=== PATIENT | male | born 1935 | race Caucasian/White ===

== ENCOUNTER 2016-08-07 11:42 | Inpatient (IN) | payer MEDICARE, BC ==
--- NOTE | ~2016-08-07 | DS ---
Unit #: [id number] #: [id number] Patient: CONNIE ISBELL [id number] [address] [place], [place] [address] [id number] I MR#: [id number] NAME: CONNIE ISBELL. ROOM: 469 Age: 80 Sex: M Admission Date: 08/07/2016 : 1935 Discharge Date: 08/08/2016 Attending Physician: Debra Siegel M.D. Primary Care Physician: Jenaro Ortega D.O. DISCHARGE SUMMARY PRINCIPAL DIAGNOSES 1. Gram negative rosa maria catheter associated urinary tract infection with pending urine culture. 2. Mild diverticulitis. 3. Mild non anion gap metabolic acidosis. 4. Severe benign prostatic hypertrophy with chronic indwelling Reaves catheter. 5. Recent right total knee arthroplasty. 6. Dementia, moderate. 7. Hypertension. 8. Gastroesophageal reflux disease. 9. Osteoarthritis. 10. Infrarenal abdominal aortic aneurysm. CONSULTANTS Dr. Jackson, urology. DIAGNOSTIC DATA IMAGING: CT scan of the abdomen and pelvis on 08/07/2016 with mild pericolonic stranding along the mid sigmoid colon, consistent with mild diverticulitis. No evidence of abscess of fluid collection. Diffuse urinary bladder wall thickening. Bladder is decompressed by Reaves catheter. Severe prostatic enlargement. A 3.5 cm infrarenal abdominal aortic aneurysm. CLINICAL HISTORY/HOSPITAL COURSE Mr. Isbell is an 80-year-old male who presented to the emergency department with complaints of abdominal pain. Please refer to history and physical for further details. CT scan in the emergency department revealed mild diverticulitis and significant cystitis. Urinalysis was also consistent with urinary tract infection. The patient was afebrile and did not have any evidence of leukocytosis. He was placed in the hospital for further evaluation. This morning the patient still remains afebrile and white blood cell count is normal. He states his abdominal pain is better. His Reaves catheter was changed in the emergency department after a dose of antibiotics. He is stating simply he would like food. I am going to see how he tolerates a diet and await physical therapy evaluation. Assuming the patient does well with physical therapy, given lack of fever or leukocytosis, I think he can be discharged home and I will follow up urine culture as an outpatient. DISCHARGE CONDITION Unit #: [id number] #: [id number] Patient: CONNIE ISBELL Stable. DISPOSITION Discharge to home. DISCHARGE MEDICATIONS 1. Megace 400 mg b.i.d. 2. Glucosamine 500 mg daily. 3. Norvasc 5 mg daily. 4. Colace 100 mg daily. 5. Donepezil 10 mg at bedtime. 6. Patanol 1 drop both eyes b.i.d. 7. Finasteride 5 mg daily. 8. Aspirin 325 mg daily. 9. Omeprazole 40 mg b.i.d. 10. Vitamin B complex plus D 1 tablet daily. 11. Levaquin 500 mg daily for 9 days. 12. Flagyl 500 mg p.o. t.i.d. for 9 days. DIET The patient is instructed to follow a heart healthy diet. ACTIVITY Increase as tolerated under the care of physical therapy and occupational therapy. FOLLOWUP 1. The patient will follow up with his orthopedic surgeon as previously scheduled. 2. He can follow up with Dr. Jenaro Ortega in two weeks. Dictated by... Debra Siegel M.D. YUE/vidya TD: 08/08/2016 12:12 JOB #: [id number] DISCHARGE SUMMARY Page 1 of 1 X Debra Siegel MD X DISCHARGE SUMMARY
--- NOTE | ~2016-08-07 | A ---
[facility] Nutrition Therapy DATE: 08/08/16 Patient: CONNIE PATIÑO Physician: TATIANA Address: [address] Room/Bed: [address] [place] [address], Zip: [place] [address] Admit Date: 08/07/16 Date of : 35 Height: 5 10 Weight: 174 79.09 NUTRITIONAL ASSESSMENT: REASON: 5 pts RE: 27# wt loss. eating poorly 80 yo male admitted for acute diverticulitis, abdominal pain, UTI PMH: Anemia, HTN, GERD, osteoathritis, dementia Anthropometrics: Ht: Wt: 79.1 kg (174#) BMI: Labs: WNL Meds: Levaquin, Protonix, Megace, Zofran, NaCl I/O & Bowel function: 2235/1800, last BM 08/06 Skin Integrity: Scar (R knee), bruise (BUE), no edema noted Assessment: Chart reviewed, events noted. Dx: Intervention: Monitoring, Evaluation and Goals: Recommendations: Pt is at a ___ nutritional risk. RD will f/u per protocol. Respectfully, Tiffani Watkins, [employer] [facility] cc: client file
--- NOTE | ~2016-08-07 | CT2 ---
[facility] A Service of [facility] & [facility] RADIOLOGY TEXT RESULTS PATIENT: CONNIE PATIÑO LOCATION: [facility] 469-01 : 35 UNIT #: [id number] AGE: [address]: Debra Siegel MD SEX: M ORDER DR: [id number] [facility] [address] [place], [place] [address] [id number] I MR#: [id number] Acc #: [id number] NAME: CONNIE PATIÑO. : 1935 SEX: M STUDY DATE/TIME: 08/07/2016 13:20 UNIT: [facility] ROOM: [facility] STUDY DESCRIPTION: CT Abd and Pelv W Cont Attending Physician: Tressa Rogers M.D. Ordering Physician: Jey Vila M.D. Primary Care Physician: Jenaro Ortega D.O. MEDICAL IMAGING REPORT This report is preliminary unless electronic signature is present EXAM CT abdomen and pelvis with IV contrast HISTORY Dysuria for 2 months. Nausea and diarrhea for [address] exam was performed with one or more of the following radiation dose reduction techniques: automatic exposure control, adjustment of mA and/or kV according to patient size, and iterative reconstruction. FINDINGS CT abdomen and pelvis was performed with IV contrast. CT ABDOMEN: The liver, gallbladder, spleen, adrenal glands and kidneys are normal. There is a 3.5 cm infrarenal abdominal aortic aneurysm, slightly larger than on 12/01/2014 when it measured 3.2 cm in similar AP dimension. Tortuous distal abdominal aorta. No bowel dilatation. No adenopathy. No ascites. 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 Mild pericolonic stranding along the medial margin of the mid sigmoid colon with underlying sigmoid diverticulosis, suggesting mild focal diverticulitis. No adjacent fluid collection or abscess. Moderate diffuse urinary bladder wall thickening could be secondary to cystitis or bladder wall hypertrophy. Moderately severe prostatic enlargement. Reaves catheter in the bladder. The bladder is decompressed. Normal appendix. Multilevel degenerative changes in the lumbar spine. IMPRESSION 1. Mild pericolonic stranding about the mid sigmoid colon suggesting mild focal diverticulitis with adjacent sigmoid wall thickening and STS. [facility] A Service of [facility] & [facility] RADIOLOGY TEXT RESULTS PATIENT: CONNIE PATIÑO LOCATION: [facility] 469-01 : 35 UNIT #: [id number] AGE: [address]: Debra Siegel MD SEX: M ORDER DR: underlying advanced sigmoid diverticulosis. No abscess or fluid collection or free fluid in the abdomen or pelvis. 2. Moderate diffuse urinary bladder wall thickening could be secondary to bladder wall hypertrophy or cystitis. 3. The bladder is decompressed by a Reaves catheter. 4. Moderately severe prostatic enlargement. 5. 3.5 cm infrarenal abdominal aortic aneurysm has enlarged slightly compared to CT 12/01/2014 when it measured 3.2 cm. 6. Normal appendix. Dictated by... Alberto Mari M.D. THIS IS AN ELECTRONICALLY VERIFIED REPORT Alberto Mari M.D. at 08/08/2016 1:47 PM NILTON/betito TD: 08/07/2016 15:45 JOB #: [id number] MEDICAL IMAGING REPORT Page 1 of 1 COPY
--- NOTE | ~2016-08-07 | HP ---
Unit #: [id number] #: [id number] Patient: CONNIE PATIÑO [id number] [address] [place], [place] [address] [id number] I MR#: [id number] NAME: CONNIE PATIÑO ROOM: 56445 Age: 80 Sex: M Admission Date: 08/07/2016 : 1935 Attending Physician: Tressa Rogers M.D. Primary Care Physician: Jenaro Ortega D.O. HISTORY AND PHYSICAL REASON FOR ADMISSION Acute diverticulitis, abdominal pain, UTI. HISTORY OF PRESENT ILLNESS Patient is a very pleasant 80-year-old male with a prior history of Alzheimer dementia, hypertension, osteoarthritis who recently had a left knee replacement and was actually discharged from rehab facility. He had actually gone successfully through rehab and was actually being transitioned home. Unfortunately, for the past several days while he was at home, he began developing abdominal pain, discomfort, as well as difficulty ambulating secondary to profound weakness; therefore, he presented to the ER for further evaluation. While here, he underwent a CT abdomen and pelvis, which showed findings consistent with acute diverticulitis, cystitis, as well as positive urinalysis consistent with a UTI. It is noted that patient, ever since he had his recent knee surgery, was unable to void, and he does have a chronic indwelling Reaves catheter, followed by Dr. Celaya of [facility]. He was placed on Bactrim on a daily basis secondary to recurrent UTIs ever since he had his catheter placement. His son, at bedside, tells me that, although he does have a prior history of dementia, he is otherwise relatively healthy and did not have any urinary issues prior to the recent surgery. PAST MEDICAL HISTORY 1. Recent right knee replacement. 2. Urinary retention. 3. Anemia. 4. Hypertension. 5. GERD. 6. Osteoarthritis. 7. Dementia, like Alzheimer, mild. PAST SURGICAL HISTORY 1. Recent knee surgery. 2. Eye surgery. HOME MEDICATIONS Omeprazole, Norvasc, glucosamine, aspirin, multivitamin, Tylenol, Bactrim, Proscar, Aricept, vitamin B12, MiraLAX. Unit #: [id number] #: [id number] Patient: CONNIE PATIÑO REVIEW OF SYSTEMS Please see HPI. Otherwise, negative except for those positively noted in the HPI. FAMILY HISTORY Reviewed. Noncontributory. Not pertinent. SOCIAL HISTORY No alcohol use. No tobacco use. No illicit drug use. PHYSICAL EXAMINATION VITAL SIGNS: Temperature 97.9, pulse 80, respiratory rate 16, blood pressure 115/67. GENERAL APPEARANCE: Patient is a frail 80-year-old male lying comfortably, no acute distress. HEAD EXAM: Atraumatic, normocephalic. EAR EXAM: Tympanic membranes do not reveal any erythema or injection. NECK EXAM: Supple. CVS: S1, S2 without murmur. RESPIRATORY: Clear to auscultation bilaterally. No evidence of any wheezes, rales or rhonchi. GI/ABDOMEN: Mild distention noted. Tender to palpation left lower quadrant. LOWER EXTREMITY EXAM: No evidence of any lower extremity edema. NEUROLOGIC EXAM: The patient is alert and oriented x2 at the present time. DIAGNOSTIC STUDIES LABS: Initial laboratory studies do yield normal CBC and chemistries. Initial urinalysis positive. IMAGING: CT abdomen and pelvis as mentioned above. INITIAL ADMISSION DIAGNOSES 1. Abdominal pain. 2. Acute diverticulitis. 3. Acute cystitis. 4. Recent knee surgery. 5. Chronic urinary retention with chronic indwelling Reaves catheter. 6. Alzheimer dementia. 7. Hypertension. PLAN Please note patient did have a urinary tract infection with chronic indwelling Reaves catheter that had been placed prior to patient being admitted. We will place the patient on a telemetry floor, await final urine culture. Patient will be placed on IV antibiotics for his acute diverticulitis. Routine laboratory studies to follow. Consultation will be placed to [facility] for evaluation. Further hospital course to follow pending laboratory studies and appropriate response to IV antibiotics. Plans have been reviewed with the patient's son, as well as family present at bedside. CODE STATUS Patient is full code. Unit #: [id number] #: [id number] Patient: CONNIE PATIÑO Dictated by Vik Bowden/ketan TD: 08/07/2016 18:48 JOB #: [id number] HISTORY AND PHYSICAL Page 1 of 1 X Tressa Rogers MD HISTORY AND PHYSICAL
--- NOTE | ~2016-08-07 | CO ---
Unit #: [id number] #: [id number] Patient: CONNIE PATIÑO [id number] [address] [place], [place] [address] [id number] I MR#: [id number] NAME: CONNIE PATIÑO. ROOM: 469 Age: 80 Sex: M Admission Date: 08/07/2016 : 1935 Attending Physician: Debra Siegel M.D. Primary Care Physician: Jenaro Ortega D.O. Consultation Date: 08/08/2016 CONSULTATION REPORT REASON FOR CONSULTATION Urinary tract infection. HISTORY OF PRESENT ILLNESS This 80-year-old man who was admitted yesterday for complaints of abdominal pain. He is undergoing rehabilitation from the total knee arthroplasty on 06/13 according to the patient. He is noted to be on Proscar and Flomax, which he says were started after the procedure. He relates what sounds like a urodynamic study showing atonic bladder however. Details not immediately available to me and relying on the patient's history. He has a followup with Dr. Celaya or his nurse practitioner and his son who was not here knows the date. His abdominal pain is improved on antibiotics overnight. Note that there was no evidence of sepsis on admission. The record relates difficulty ambulating and weakness prior to admission also and that he has been on prophylactic Bactrim for infection with his indwelling catheter. The patient has a history of dementia, but gives seemingly accurate history today. PAST MEDICAL HISTORY Anemia, hypertension, GERD, arthritis, early Alzheimer's. PAST SURGICAL HISTORY Knee surgery, eye surgery. HOME MEDICATIONS Omeprazole, Norvasc, glucosamine, aspirin, multivitamins, Tylenol, Bactrim, Proscar, Aricept, vitamin B, MiraLAX, and tamsulosin is not listed. ALLERGIES Talwin and cefuroxime. FAMILY HISTORY Noncontributory. SOCIAL HISTORY No alcohol or tobacco use. REVIEW OF SYSTEMS Positive for heartburn this morning due to hunger, knee pain from surgery, and he is having abdominal pain. Denies constipation, chest pain, Unit #: [id number] #: [id number] Patient: CONNIE PATIÑO shortness of air. Other subsystems negative. PHYSICAL EXAMINATION GENERAL: The patient is alert, comfortable, sitting up in bed. HEENT: Unremarkable. ABDOMEN: Soft, mildly diffusely tender. No scars or distention. PHALLUS: Uncircumcised. Reaves catheter in place, draining clear, yellow urine. Was not secured correctly to device and this was remedied. Testes and epididymides soft, descended bilaterally. Digital exam deferred due to condition. EXTREMITIES: No edema. NEUROLOGIC: Grossly intact. SKIN: [place]. PSYCHIATRIC: Normal affect and mood. VITAL SIGNS: Afebrile with stable vital signs and currently temperature 98.1, pulse 76, blood pressure 115/69, respirations 22. DIAGNOSTIC STUDIES LABORATORY RESULTS: Include creatinine 0.9. WBC 6.4. Urine shows innumerable wbc's, 200 to 300 red cells, 4+ bacteria. Urine culture, preliminary gram-negative rods. IMPRESSION 1. Urinary tract infection due to indwelling Reaves catheter. Gram-negative rods growing. He has been started on Levaquin and Flagyl with improvement. 2. Postoperative urinary retention evidently prostatism and/or atonic bladder noting recent addition of Proscar and that he has been on Flomax at some point, but not currently. PLAN We will add tamsulosin back to the medical regimen. Continue Proscar and indwelling catheter. Follow up on cultures and treat accordingly. He should be discharged eventually with his catheter to follow up with Dr. Celaya regarding timing of a voiding trial or other management if truly atonic bladder. Thank you, Dr. Bustillos for the consultation. Dictated by... Jenaro Jackson M.D. EDDIE/santhosh TD: 08/08/2016 23:05 JOB #: [id number] CC: Vik Bowden D.O. Unit #: [id number] #: [id number] Patient: CONNIE PATIÑO CONSULTATION REPORT Page 1 of 1 X Jenaro Jackson MD CONSULTATION REPORT
--- NOTE | ~2016-08-07 | DS ---
Unit #: [id number] #: [id number] Patient: CONNIE PATIÑO [id number] [address] [place], [place] [address] [id number] Odin MR#: [id number] NAME: CONNIE PATIÑO. ROOM: 469 Age: 80 Sex: M Admission Date: 08/07/2016 : 1935 Discharge Date: 08/09/2016 Attending Physician: Debra Siegel M.D. Primary Care Physician: Jenaro Ortega D.O. DISCHARGE SUMMARY ADDENDUM ADDITIONAL DISCHARGE DIAGNOSIS Gram-negative rosa maria urinary tract infection with pending identification. Sensitivities are complete. HOSPITAL COURSE The patient was maintained overnight so family could arrange 31/10 care for him at home. The patient was seen yesterday by Physical Therapy who is suggesting rehab. However, the patient has just completed four weeks of rehab therapy and I suspect his greatest obstacle is his memory loss. This was all discussed with the patient's son who expresses understanding. Today, urine is revealing gram-negative rosa maria, the identification of which is not complete but, according to micro lab, sensitivities have returned. It is resistant to Levaquin and, thus, I am going to change the patient to ciprofloxacin to which it is sensitive. We will also complete a course of Flagyl. Today, one of two blood cultures returned with gram-positive cocci. Given lack of fever, lack of leukocytosis and lack of obvious infection of the right knee. I suspect this is a contaminant. However, the patient does have a recent right knee replacement. I am going to give him a single dose of vancomycin and followup cultures this afternoon. I will also repeat blood cultures this a.m. If no significant evidence of infection this afternoon, we will discharge home. We will follow up cultures as an outpatient. DISCHARGE CONDITION Stable. DISCHARGE STATUS Discharged to home. DISCHARGE MEDICATIONS As noted yesterday with the exception of discontinuation of Levaquin and initiation of ciprofloxacin 500 mg p.o. b.i.d. for eight days and Flagyl will also now be for eight days as well. DISCHARGE INSTRUCTIONS As previously noted. Time spent on discharge today 40 minutes. Unit #: [id number] #: [id number] Patient: PLAMP,CONNIE saavedra.. Vik Choudhury TD: 08/09/2016 09:54 JOB #: [id number] DISCHARGE SUMMARY Page 1 of 1 X Debra Siegel MD X DISCHARGE SUMMARY
[~2016-08-07 11:42] MED LIST: ALEVE220 M1 PO; AMLODIPINE BES2.5 MG PO; ASPIRIN81 MG PO; ASTELIN137 MCG INH; CARAFATE1 G PO; CULTURELLE CAP1 EACH PO; EXCEDRIN ASA FR1 TA1 PO; FLONASE16 GM; GLUCOSAMINE CHO1 CA3 PO; LOTRISONE CREAM45 GM TOP; MEDROL4 MG/DOSE- PO; MEGACE ORA400 MG/10 PO; MULTI VITAMIN1 EACH PO; NORVASC2.5 MG PO; OMEPRAZOLE40 M1 PO; PANTOPRAZOLE SO40 MG PO; PRILOSEC20 MG PO; TYLENOL325 M1 PO; ZOFRAN PO
[2016-08-07 11:52] LABS: URINE SOURCE CLEAN CATCH
[2016-08-07 11:59] LABS: URINE APPEARANCE TURBID; URINE BILIRUBIN NEG (NEG); URINE BLOOD 3+ (NEG); URINE COLOR YELLOW; URINE GLUCOSE NEG (NEG); URINE KETONE NEG (NEG); URINE LEUKOCYTE ESTERASE 3+ (NEG); URINE NITRATE NEG (NEG); URINE PROTEIN 2+ (NEG); URINE SPECIFIC GRAVITY 1.023 (1.003-1.035)
[2016-08-07 12:00] LABS: BASOPHIL# 0.1 X10e3 (0-0.3); BASOPHIL% 0.7 % (0-2.5); EOSINOPHIL# 0.2 X10e3 (0-0.7); EOSINOPHIL% 2.8 % (0.0-7.0); HEMATOCRIT 38.3 % (38.0-50.0); HEMOGLOBIN 12.8 gm/dL (13.0-16.0); LYMPHOCYTE# 1.3 X10e3 (1.0-3.5); LYMPHOCYTE% 17.1 % (17.0-45.0); MEAN CELL VOLUME 88.9 FL (83-96); MEAN CORPUSCULAR HEMOGLOBIN 29.7 PG (28-34); MEAN CORPUSCULAR HGB CONC 33.5 g/dL (30-36); MEAN PLATELET VOLUME 8.1 FL (6.5-11.5); MONOCYTE# 0.6 X10e3 (0-1.0); MONOCYTE% 8.1 % (3.0-12.0); NEUTROPHIL# 5.3 X10e3 (1.5-7.1); NEUTROPHIL% 71.3 % (40-75); PLATELET COUNT 161 X10e3 (140-420); RED BLOOD COUNT 4.31 X10e (3.90-5.60); RED CELL DISTRIBUTION WIDTH 14.1 % (11.0-15.5); WHITE BLOOD COUNT 7.4 X10e3 (4.0-10.5)
[2016-08-07 12:01] LABS: DIFF IND NO
[2016-08-07 12:05] LABS: CULTURE INDICATED? YES; URBCS1 AUWI 200-300 /[HPF] (0-2); URINE BACTERIA AUWI 4+ (NEGATIVE); URINE SQUAMOUS EPITHELIAL CELL NONE SEEN /[HPF]; UWBCS1 AUWI INNUM (0-5)
[2016-08-07 12:20] LABS: CALCIUM SERUM 8.7 mg/dL (8.4-10.2); GLOM FILT RATE Estimated 70.8 mL/min (>60); POTASSIUM 3.8 mmol/L (3.5-5.1)
[2016-08-07 12:24] LABS: U HYALINE CASTS AUWI 0-2 /[LPF]
[2016-08-07] MEDS ORDERED: DOCUSATE SODIU100 MG PO (15:39)
[2016-08-07] MEDS ORDERED: MEGACE ORA40 MG/ML S PO (15:39)
[2016-08-07] MEDS ORDERED: ASPIRIN81 M2 PO (15:39)
[2016-08-07] MEDS ORDERED: DONEPEZIL HCL10 MG PO (15:40)
[2016-08-07] MEDS ORDERED: FINASTERIDE5 M1 PO (15:40)
[2016-08-07] MEDS ORDERED: OMEPRAZOLE40 M1 PO (15:41)
[2016-08-07] MEDS ORDERED: GLUCOSAMINE500 M1 PO (15:41)
[2016-08-07] MEDS ORDERED: B-COMPLEX PLUS1 EACH PO (15:42)
[2016-08-07 20:26] LABS: BASOPHIL% 0.5 % (0-2.5); EOSINOPHIL# 0.2 X10e3 (0-0.7); EOSINOPHIL% 3.5 % (0.0-7.0); HEMATOCRIT 40.1 % (38.0-50.0); HEMOGLOBIN 13.4 gm/dL (13.0-16.0); LYMPHOCYTE# 1.6 X10e3 (1.0-3.5); LYMPHOCYTE% 24.3 % (17.0-45.0); MEAN CELL VOLUME 89.3 FL (83-96); MEAN CORPUSCULAR HEMOGLOBIN 29.7 PG (28-34); MEAN CORPUSCULAR HGB CONC 33.3 g/dL (30-36); MEAN PLATELET VOLUME 8.3 FL (6.5-11.5); MONOCYTE# 0.4 X10e3 (0-1.0); MONOCYTE% 6.5 % (3.0-12.0); NEUTROPHIL# 4.3 X10e3 (1.5-7.1); NEUTROPHIL% 65.2 % (40-75); PLATELET COUNT 157 X10e3 (140-420); RED BLOOD COUNT 4.49 X10e (3.90-5.60); RED CELL DISTRIBUTION WIDTH 13.9 % (11.0-15.5); WHITE BLOOD COUNT 6.6 X10e3 (4.0-10.5)
[2016-08-07] MEDS ORDERED: AMLODIPINE BESYL5 MG PO (20:30)
[2016-08-07] MEDS ORDERED: PATANOL5 ML OU (20:31)
[2016-08-07 20:37] LABS: BUN/CREATININE RATIO 15.45; CALCIUM SERUM 8.9 mg/dL (8.4-10.2); CREATININE SERUM 1.1 mg/dL (0.6-1.4); DIFF IND NO; GLOM FILT RATE Estimated 63.1 mL/min (>60); MAGNESIUM 2.2 mg/dL (1.6-3.0); POTASSIUM 4.3 mmol/L (3.5-5.1)
[2016-08-08 02:04] LABS: BASOPHIL% 0.5 % (0-2.5); EOSINOPHIL# 0.2 X10e3 (0-0.7); EOSINOPHIL% 3.7 % (0.0-7.0); HEMATOCRIT 36.1 % (38.0-50.0); HEMOGLOBIN 12.1 gm/dL (13.0-16.0); LYMPHOCYTE# 1.4 X10e3 (1.0-3.5); LYMPHOCYTE% 21.8 % (17.0-45.0); MEAN CELL VOLUME 88.1 FL (83-96); MEAN CORPUSCULAR HEMOGLOBIN 29.6 PG (28-34); MEAN CORPUSCULAR HGB CONC 33.6 g/dL (30-36); MEAN PLATELET VOLUME 7.7 FL (6.5-11.5); MONOCYTE# 0.5 X10e3 (0-1.0); MONOCYTE% 7.4 % (3.0-12.0); NEUTROPHIL# 4.3 X10e3 (1.5-7.1); NEUTROPHIL% 66.6 % (40-75); PLATELET COUNT 157 X10e3 (140-420); WHITE BLOOD COUNT 6.4 X10e3 (4.0-10.5)
[2016-08-08 02:05] LABS: DIFF IND NO
[2016-08-08 02:29] LABS: BUN/CREATININE RATIO 17.77; CALCIUM SERUM 8.4 mg/dL (8.4-10.2); CREATININE SERUM 0.9 mg/dL (0.6-1.4); GLOM FILT RATE Estimated 80.4 mL/min (>60); MAGNESIUM 2.2 mg/dL (1.6-3.0); POTASSIUM 3.9 mmol/L (3.5-5.1)
[2016-08-09 09:03] LABS: HEMATOCRIT 41.3 % (38.0-50.0); HEMOGLOBIN 13.9 gm/dL (13.0-16.0); MEAN CELL VOLUME 89.3 FL (83-96); MEAN CORPUSCULAR HGB CONC 33.6 g/dL (30-36); RED BLOOD COUNT 4.63 X10e (3.90-5.60); RED CELL DISTRIBUTION WIDTH 14.1 % (11.0-15.5); WHITE BLOOD COUNT 6.9 X10e3 (4.0-10.5)
[2016-08-09 09:34] LABS: CALCIUM SERUM 8.7 mg/dL (8.4-10.2); GLOM FILT RATE Estimated 70.8 mL/min (>60); POTASSIUM 3.5 mmol/L (3.5-5.1)
[2016-08-09] MEDS ORDERED: CIPRO PO (11:10)
[2016-08-09] MEDS ORDERED: FLAGYL PO (11:11)
== END 2016-08-09 13:30 | disposition home health service (06) | DRG 699 ==
LOC: CED 11:42 → CEDOF 15:35 → C4C 19:56
PROVIDERS: Emergency Medicine; Family Medicine; Internal Medicine
DX: T83.518A Infection and inflammatory reaction due to other urinary catheter, initial encounter (principal); K57.32 Diverticulitis of large intestine without perforation or abscess without bleeding; E87.2 Acidosis; N39.0 Urinary tract infection, site not specified; G30.9 Alzheimer's disease, unspecified; F02.80 Dementia in other diseases classified elsewhere, unspecified severity, without behavioral disturbance, psychotic disturbance, mood disturbance, and anxiety; B96.89 Other specified bacterial agents as the cause of diseases classified elsewhere; Z88.8 Allergy status to other drugs, medicaments and biological substances; N40.0 Benign prostatic hyperplasia without lower urinary tract symptoms; Z96.651 Presence of right artificial knee joint; I10 Essential (primary) hypertension; K21.9 Gastro-esophageal reflux disease without esophagitis; I71.4 Abdominal aortic aneurysm, without rupture
CPT/HCPCS: 36415; 74177; 80048; 81003; 82607; 83735; 84443; 85025; 85027; 87040; 87086; 87088; 87186; 94760; 97116; 97162; 97167; 97535; 99285; G8978-GP; G8979-GO; G8979-GP; G8980-GO; G8987-GO; G8988-GO; G8989-GO; J1956; J2543; J3370; Q9967

== ENCOUNTER 2016-08-24 09:11 | Inpatient (IN) | payer MEDICARE, BC ==
--- NOTE | ~2016-08-24 | CT2 ---
[facility] A Service of [facility] & [facility] RADIOLOGY TEXT RESULTS PATIENT: CONNIE PATIÑO LOCATION: [facility] : 35 UNIT #: [id number] AGE: [address]: GABRIEL HUFFMAN MD SEX: M ORDER DR: [id number] [facility] [address] [place], [place] [address] [id number] MR#: [id number] Acc #: [id number] NAME: CONNIE PATIÑO. : 1935 SEX: M STUDY DATE/TIME: 08/24/2016 11:18 UNIT: [facility] ROOM: STUDY DESCRIPTION: CT Abd and Pelv W Cont Attending Physician: Jenaro Sandoval M.D. Ordering Physician: Jenaro Sandoval M.D. Primary Care Physician: Jenaro Ortega D.O. MEDICAL IMAGING REPORT This report is preliminary unless electronic signature is present EXAM CT scan of the abdomen and pelvis without contrast HISTORY Abdominal pain, blood in cath starting last night. COMPARISON 08/07/2016. TECHNIQUE Patient was given 100 mL of Isovue 370 and axial 5 mm images were obtained through the abdomen and pelvis. This CT exam was performed with one or more of the following radiation dose reduction techniques: automatic control, adjustment of mA and/or kV according to patient size, and iterative reconstruction. FINDINGS Lung bases are clear. Oral contrast was also administered. The liver, gallbladder, spleen, pancreas, adrenal glands and kidneys are normal. The aorta shows mild enlargement. It measures about 3.2 cm in diameter. It is somewhat tortuous. There are degenerative changes throughout the lumbar spine. The bowel appears normal except for left groin diverticula and an area of inflammation associated with the lower left colon consistent with diverticulitis. There is inflammatory change in the surrounding fat. There is no abscess or free air. There is a Reaves catheter present and the prostate gland is enlarged so that it bulges into to the base of the bladder. On the sagittal images the prostate gland is about 8.2 cm from top to bottom. The bladder is normal. IMPRESSION 1. There is some inflammatory change around short segment of the lower left colon where there are numerous diverticula and I believe this [facility] A Service of [facility] & [facility] RADIOLOGY TEXT RESULTS PATIENT: CONNIE PATIÑO LOCATION: [facility] [id number] : 35 UNIT #: [id number] AGE: [address]: GABRIEL HUFFMAN MD SEX: M ORDER DR: represents diverticulitis or perhaps focal colitis. There is no free air or abscess. 2. Left colon diverticulosis. 3. Enlarged prostate gland measuring at least 8 cm from top to bottom. 4. Slight enlargement of the aorta measuring 3.5 cm in diameter. Dictated by... Eduardo Coats M.D. THIS IS AN ELECTRONICALLY VERIFIED REPORT Eduardo Coats M.D. at 08/24/2016 3:39 PM WILLIAMS/jaja TD: 08/24/2016 12:26 JOB #: [id number] MEDICAL IMAGING REPORT Page 1 of 1 COPY
--- NOTE | ~2016-08-24 | CR169 ---
[facility] A Service of [facility] & [facility] RADIOLOGY TEXT RESULTS PATIENT: CONNIE PATIÑO LOCATION: [facility] 470-01 : 35 UNIT #: [id number] AGE: [address]: Debra Siegel MD SEX: M ORDER DR: [id number] [facility] [address] [place], [place] [address] [id number] I MR#: [id number] Acc #: [id number] NAME: CONNIE PATIÑO : 1935 SEX: M STUDY DATE/TIME: 08/25/2016 09:21 UNIT: [facility] ROOM: [facility] STUDY DESCRIPTION: CR Knee 2 Views Lt Attending Physician: Debra Siegel M.D. Ordering Physician: Debra Siegel M.D. Primary Care Physician: Jenaro Ortega D.O. MEDICAL IMAGING REPORT This report is preliminary unless electronic signature is present EXAM Left knee 2 views, 08/25/2016 09:21 hours HISTORY 80-year-old man who fell 1 week ago landing on both knees. Patient complains of bilateral anterior knee pain for 1 week. COMPARISON None FINDINGS AP and crosstable lateral views demonstrate a small to moderate suprapatellar bursa effusion without lipohemarthrosis. There is tricompartmental degenerative change with joint space loss and spurring most prominent in the medial and patellofemoral compartments with more narrowing of the medial compartment relative to the lateral compartment. No fracture or loose body. Atherosclerotic calcification seen. IMPRESSION 1. There is a small to moderate suprapatellar bursa effusion without lipohemarthrosis or fracture. 2. Tricompartmental degenerative change most prominent in the medial compartment, likely chronic. There is no fracture. 3. Atherosclerotic calcifications are present. Dictated by... Hannah Davidson M.D. THIS IS AN ELECTRONICALLY VERIFIED REPORT Hannah Davidson M.D. at 08/25/2016 2:26 PM GE/betito TD: 08/25/2016 10:03 STS. [facility] A Service of [facility] & [facility] RADIOLOGY TEXT RESULTS PATIENT: CONNIE PATIÑO LOCATION: [place] [address] : 35 UNIT #: [id number] AGE: [address]: Debra Siegel MD SEX: M ORDER DR: JOB #: [id number] MEDICAL IMAGING REPORT Page 1 of 1 COPY
--- NOTE | ~2016-08-24 | DS ---
Unit #: [id number] #: [id number] Patient: CONNIE ISBELL [id number] [address] [place], [place] [address] [id number] MR#: [id number] NAME: CONNIE ISBELL. ROOM: [facility] Age: 80 Sex: M Admission Date: 08/24/2016 : 1935 Discharge Date: 08/27/2016 Attending Physician: Debra Siegel M.D. Primary Care Physician: Jenaro Ortega D.O. DISCHARGE SUMMARY SEE ADDENDUM PRINCIPAL DIAGNOSES 1. Enterococcus catheter-associated urinary tract infection. 2. Recurrent sigmoid diverticulitis. 3. Benign prostatic hypertrophy with urinary retention. 4. Atonic bladder. 5. Hypertension. 6. Moderate dementia. 7. Osteoarthritis. 8. Hematuria, likely secondary to Reaves trauma. 9. Allergies. 10. Hypertension. 11. Gastroesophageal reflux disease. 12. Stage 2 coccyx ulcer present upon admission. 13. Normocytic anemia. 14. Severe deconditioning. CONSULTANTS 1. Dr. Jackson, urology. 2. Dr. Simon, LS. DIAGNOSTIC STUDIES IMAGING: X-ray of right and left knee on August 25, 2016, with no hardware abnormality on the right, suprapatellar bursal effusion noted bilaterally. CT scan of the abdomen and pelvis with contrast on August 24, 2016, with inflammatory change around the short segment of the lower left colon, diverticulosis noted, and large prostate gland was noted. CLINICAL HISTORY AND HOSPITAL COURSE Mr. Isbell is an 80-year-old, male who presents to the emergency department with abdominal pain. Please refer to H and P for further details. CT scan of the abdomen and pelvis revealed some questionable diverticulitis for which patient had been treated earlier this month. He was also found to have catheter-associated UTI and was subsequently admitted. Patient was placed on Merrem due to his history of resistant urinary tract infections. Urine culture is currently growing Enterococcus and sensitivity is pending. (1) sensitive, I will change the patient to Macrobid and allow him to be discharged home. Patient is being followed by Dr. Celaya on August 31 as an outpatient for evaluation of perhaps having the Reaves catheter removed and he will follow up with Unit #: [id number] #: [id number] Patient: CONNIE ISBELL Kobialex. I have discussed this with the patient and his son. I asked Dr. Simon to see the patient given his recurrent episodes of diverticulitis, thought patient is only minimally tender in that region, is not having diarrhea, and never has any fever and minimal leukocytosis. Patient did undergo colonoscopy in November of 2015, according to his son, and this was unremarkable. Patient can have a repeat colonoscopy if he so wishes two weeks following his diverticulitis. Patient is significantly weak. I did discuss rehab with patient's son, but, ultimately, patient never progressed well with rehab following his knee replacement earlier this year and plan is to discharge patient home with continued home health and he will be supervised by Fauzia, as well. DISCHARGE CONDITION Stable. DISCHARGE STATUS Discharged home. DISCHARGE MEDICATIONS 1. Flomax 0.4 mg every night. 2. Tylenol 650 mg p.o. q.6 hours p.r.n. for pain. 3. Loperamide 2 mg 4 times daily p.r.n. for diarrhea. 4. Meclizine 25 mg 1/2 tablet p.o. t.i.d. 5. Zofran 4 mg p.o. q.8 hours p.r.n. for nausea/vomiting. 6. Claritin 10 mg daily. 7. Megace 40 mg b.i.d. 8. Glucosamine 500 mg p.o. t.i.d. 9. Norvasc 5 mg daily. 10. Donepezil 5 mg at bedtime. 11. Patanol 1 drop to both eyes twice daily. 12. Finasteride 5 mg daily. 13. Daily multivitamin. 14. Aspirin 81 mg daily. 15. Lortab 5/325 one tablet every 8 hours p.r.n. for pain. 16. Omeprazole 40 mg b.i.d. 17. Vitamin D 50,000 units p.o. weekly. 18. Antibiotics will be dictated as an addendum. DISCHARGE INSTRUCTIONS 1. Patient instructed to follow a regular diet. 2. He can increase activity as tolerated and, again, will be discharged home with a Reaves catheter. 3. FOLLOWUP A. Patient will follow up with Dr. Celaya on August 31 for urodynamic studies in the office to determine when the Reaves catheter can be removed. B. Patient will follow up with Dr. Jenaro Ortega in approximately two weeks. Dictated by... Vik Choudhury/verena TD: 08/27/2016 10:04 Unit #: [id number] #: [id number] Patient: CONNIE ISBELL JOB #: [id number] ADDENDUM DISCHARGE ANTIBIOTICS 1. Flagyl 500 mg p.o. t.i.d. for 14 days. 2. Macrobid 100 mg p.o. b.i.d. for 7 day. Dictated by... Vik Choudhury/verena TD: 08/27/2016 10:29 JOB #: [id number] DISCHARGE SUMMARY Page 1 of 1 X Debra Siegel MD X DISCHARGE SUMMARY
--- NOTE | ~2016-08-24 | HP ---
Unit #: [id number] #: [id number] Patient: CONNIE PATIÑO [id number] [address] [place], [place] [address] [id number] MR#: [id number] NAME: CONNIE PATIÑO ROOM: Age: 80 Sex: M Admission Date: 08/24/2016 : 1935 Attending Physician: Jenaro Sandoval M.D. Primary Care Physician: Jenaro Ortega D.O. HISTORY AND PHYSICAL CHIEF COMPLAINT Abdominal pain. HISTORY OF PRESENT ILLNESS The patient is an 80-year-old male with a history of Alzheimer dementia, hypertension, and osteoarthritis, who had left knee replacement and was recently discharged from the hospital with Acinetobacter UTI and diverticulitis on August 09, who presented to the emergency room complaining of worsening abdominal pain and blood in the cath. The patient was discharged home with a Reaves catheter secondary to atonic bladder. Patient was recommended to follow with his urologist, Dr. Celaya, regarding timing of voiding trial or other management for atonic bladder. The patient stated patient has been having gradually worsening pain since that time with blood in the urine. The patient had a repeat CT of the abdomen and pelvis that showed diverticulitis, and urinalysis was positive for enumerable RBCs and 3+ blood. The patient is being admitted for the above reasons. PAST MEDICAL HISTORY 1. Recent right knee replacement. 2. Urinary retention. 3. Anemia. 4. Hypertension. 5. Gastroesophageal reflux disease. 6. Osteoarthritis. 7. Dementia. PAST SURGICAL HISTORY 1. Recent knee surgery. 2. Eye surgery. HOME MEDICATIONS 1. Megace. 2. Aspirin. 3. Colace. 4. Donepezil. 5. Finasteride. 6. Glucosamine. 7. Omeprazole. 8. B-Complex. 9. Vitamin C. 10. Norvasc. 11. Patanol. Unit #: [id number] #: [id number] Patient: CONNIE PATIÑO SOCIAL HISTORY No history of smoking cigarettes, drinking alcohol, or any illicit drug abuse. FAMILY HISTORY Reviewed and none. REVIEW OF SYSTEMS A 14-point review of systems was performed and only pertinent positive findings are described above. PHYSICAL EXAMINATION GENERAL: Patient is lying in bed not in acute distress. VITAL SIGNS: Temperature 97.1, pulse 75, respiratory rate 15, blood pressure 141/95, and saturating 99% on room air. HEENT: Head atraumatic, normocephalic. Pupils equal, round, and reactive to light and accommodation. Extraocular movements are intact. Moist mucous membranes. NECK: Supple. LUNGS: Clear to auscultation. HEART: Regular rate and rhythm. ABDOMEN: Soft. Positive bowel sounds. Tenderness at the epigastric and left lower quadrant. No rebound, no rigidity. EXTREMITIES: No cyanosis, no clubbing. Patient has a Reaves catheter with a leg pack on the right leg. NEUROLOGIC: Alert, awake, and oriented. DIAGNOSTIC STUDIES LABORATORY: Glucose 89, BUN 15, creatinine 0.9, sodium 138, potassium 3.5, chloride 108, bicarb 20, calcium 8.7, total protein 6.6, albumin 3.7, AST 24, ALT 25, and alkaline phosphatase 54. WBC 4.9, hemoglobin 12.8, hematocrit 38.4, and platelets 153,000. Urinalysis shows 3+ leukocyte esterase, 1+ protein, 3+ blood, enumerable urine RBCs, enumerable urine WBCs, and 1+ urine bacteria. IMAGING: CT of the abdomen and pelvis shows multiple diverticula with diverticulitis of the sigmoid. ASSESSMENT 1. Recurrent diverticulitis. 2. Recurrent urinary tract infection. 3. Hematuria. PLAN Admit the patient to inpatient with telemetry. Patient failed oral treatment with Cipro and Flagyl the last time. Patient will have Urology evaluation for cystoscopy for hematuria and [facility] consult for recurrent diverticulitis concerning for colovesical fistula with recurrent bladder infection. Continue with IV antibiotics with Merrem as the patient has Acinetobacter in the urine and failed quinolones. Change the Reaves catheter and repeat the labs again in the morning. Further recommendations will follow. Dictated by Vik Cowan Unit #: [id number] #: [id number] Patient: CONNIE PATIÑO TD: 08/24/2016 14:34 JOB #: [id number] HISTORY AND PHYSICAL Page 1 of 1 X X HISTORY AND PHYSICAL
--- NOTE | ~2016-08-24 | CR170 ---
[facility] A Service of [facility] RADIOLOGY TEXT RESULTS PATIENT: CONNIE PATIÑO LOCATION: [facility] 470-01 : [birth year] UNIT #: [id number] AGE: [address]: Debra Siegel MD SEX: M ORDER DR: [id number] [facility] [address] [place], [place] [address] [id number] I MR#: [id number] Acc #: [id number] NAME: CONNIE PATIÑO : 1935 SEX: M STUDY DATE/TIME: 08/25/2016 09:13 UNIT: [facility] ROOM: [facility] STUDY DESCRIPTION: CR Knee 2 Views Rt Attending Physician: Debra Siegel M.D. Ordering Physician: Debra Siegel M.D. Primary Care Physician: Jenaro Ortega D.O. MEDICAL IMAGING REPORT This report is preliminary unless electronic signature is present EXAM Right knee 2 views 08/25/2016 0913 hours HISTORY Patient fell landing on both knees 1 week ago, bilateral knee pain for 1 week. COMPARISON None. FINDINGS AP and cross-table lateral views demonstrate prior total knee replacement with hardware intact in anatomic alignment. There is prepatellar soft tissue swelling. There is a radiopaque foreign body in the subcutaneous tissues anteriorly inferior to the patella and superficial to the proximal inferior patellar tendon measuring 4 mm. This is of unknown chronicity. There is fluid and calcification in the suprapatellar bursa which may be chronic. Atherosclerotic calcifications are present. IMPRESSION 1. There is postop change of knee replacement with no malalignment or hardware failure. 2. There is a small suprapatellar bursa effusion with some calcifications in the suprapatellar bursa which could be acute or chronic, favor chronic. 3. There is prepatellar and pre-inferior patellar tendon soft tissue subcutaneous edema with a 4 mm radiopaque foreign body present. This is of indeterminate age. There are no prior studies for comparison. STAT * RESULT THIS IS AN ELECTRONICALLY VERIFIED REPORT [facility] A Service of [facility] RADIOLOGY TEXT RESULTS PATIENT: CONNIE PATIÑO LOCATION: [facility] 470- : 35 UNIT #: [id number] AGE: [address]: Debra Siegel MD SEX: M ORDER DR: Hannah Davidson M.D. at 08/25/2016 2:26 PM Dictated by... Vik Bell/benny TD: 08/25/2016 09:51 JOB #: [id number] MEDICAL IMAGING REPORT Page 1 of 1 COPY
--- NOTE | ~2016-08-24 | CO ---
Unit #: [id number] #: [id number] Patient: CONNIE PATIÑO [id number] [address] [place], [place] [address] [id number] I MR#: [id number] NAME: CONNIE PATIÑO ROOM: [facility] Age: 80 Sex: M Admission Date: 08/24/2016 : 1935 Attending Physician: Debra Siegel M.D. Primary Care Physician: Jenaro Ortega D.O. Consultation Date: 08/26/2016 CONSULTATION REPORT BRIEF SUMMARY The patient is an 80-year-old, white male who presented to the emergency room 2 days ago complaining of lower abdominal pain. He had only had this for a couple of days and also had noted some hematuria. The patient was noted to have evidence of an enlarged prostate on CT scan and a Reaves catheter was placed and there was a large amount of urine drained. Also, there was a localized area of inflammation on the sigmoid colon, possibly on the basis of some mild diverticulitis versus colitis. The patient denies any rectal bleeding, but has had some chronic constipation. His last colonoscopy was approximately four years ago and was done by Dr. Cornelius. This showed diverticulosis without diverticulitis or other abnormalities. The patient does have some senile dementia and lives at home, but does give a fairly good history. He has had no fever or chills. He has had no recent weight loss. PAST MEDICAL HISTORY Except for having the things mentioned above, he has had chronic arthritis and has been complaining, as well, of some severe right knee pain. He has had a left knee replacement previously. He has also had some hypertension as well as some anemia. His knee surgery was recent. REVIEW OF SYSTEMS Twelve-system review has been performed, which is non-remarkable, except that noted in present illness. PHYSICAL EXAMINATION VITAL SIGNS: The patient is afebrile on admission. Vital signs are normal. HEENT: Non-remarkable. NECK: Supple. CHEST: There is equal bilateral expansion with bilateral equal breath sounds. LUNGS: Clear bilaterally. HEART: Regular rhythm without murmurs or gallops. There is no evidence of cardiomegaly clinically. ABDOMEN: Soft and moderately tender in the left lower quadrant without mass or organomegaly. There is no rebound, but some mild guarding. Active bowel sounds present. No evidence of ascites or hernias. EXTREMITIES: Full range of motion without limitation. There is tenderness over the right knee with no evidence of any major effusion. BACK: There is no CVA tenderness. NEUROLOGICAL: Grossly intact. DIAGNOSTIC STUDIES Unit #: [id number] #: [id number] Patient: CONNIE PATIÑO LABORATORY: Values basically are normal. He has a normal white blood cell count. His hemoglobin is 12.5. IMPRESSION The patient has possible some mild diverticulitis as well as problems with urinary retention and BPH and hematuria. The plan will be to treat him with IV antibiotics for the next week, possibly oral antibiotics after that, and then would go ahead with an outpatient colonoscopy is approximately two weeks once his tenderness subsides. Also, his problems will be managed by urology. Dictated by... Nils Simon Jr., M.Kwesi. SHRUTHI/verena TD: 08/26/2016 09:41 JOB #: [id number] CONSULTATION REPORT Page 1 of 1 X Nils Simon MD X CONSULTATION REPORT
--- NOTE | ~2016-08-24 | CO ---
Unit #: [id number] #: [id number] Patient: CONNIE PATIÑO [id number] [address] [place], [place] [address] [id number] MR#: [id number] NAME: CONNIE PATIÑO. ROOM: [facility] Age: 80 Sex: M Admission Date: 08/24/2016 : 1935 Attending Physician: Debra Siegel M.D. Primary Care Physician: Jenaro Ortega D.O. CONSULTATION REPORT The patient was readmitted for abdominal pain following recent treatment for diverticulitis. He retains an indwelling Reaves catheter since knee surgery two and a half months ago. He did fail at least one voiding trial since that time. He has been on Finasteride and tamsulosin started postoperatively. He is managed by my partner, Dr. Celaya. I saw him myself in consultation on his last admission on August 08, 2016. This reconsultation was sent mainly for gross hematuria and abdominal pain. His chief complaint to me this morning is primarily neck pain, low back pain and bilateral lower extremity pain since a fall at home last Monday. He appears to have had his Reaves catheter replaced yesterday appropriately as the bladder was not draining well, according to images on CT scan. Any gross hematuria noted yesterday has cleared overnight with bladder drainage and antibiotic therapy. I have carefully studied the CT images and there is no evidence of a colovesical fistula. He did have an urodynamic study showing an atonic bladder. He has a diagnosis of dementia but, again, provides accurate history. PAST MEDICAL HISTORY Anemia, hypertension, GERD, arthritis, early Alzheimer, diverticulitis. PAST SURGICAL HISTORY Knee and eye surgery. SOCIAL HISTORY No tobacco or alcohol use. FAMILY HISTORY Noncontributory. ALLERGIES Talwin and cefuroxime. MEDICATIONS ON ADMISSION 1. Flomax 0.4 mg daily. 2. Finasteride 5 mg daily. 3. Ondansetron. 4. Omeprazole. 5. Glucosamine. 6. Donepezil. 7. Low dose aspirin. 8. Amlodipine. 9. Patanol. Unit #: [id number] #: [id number] Patient: CONNIE PATIÑO 10. Tylenol. 11. Hydrocodone/acetaminophen 5 mg. 12. Loperamide. 13. Claritin. 14. Megace. 15. Multivitamins. REVIEW OF SYSTEMS Orthopaedic pains as noted. Some abdominal pain. No diarrhea. PHYSICAL EXAMINATION GENERAL APPEARANCE: The patient is clearly unhappy but appears relatively comfortable. VITAL SIGNS: Afebrile with stable vital signs. Temperature 97.6 degrees. Pulse 69. Blood pressure 108/68. Respirations 18. HEENT: Unremarkable. LUNGS: Clear. CARDIAC: Rate and rhythm regular. ABDOMEN: Thin, soft. No distension, seems diffusely tender however. GENITALIA: Phallus normal. Reaves catheter in place draining clear yellow urine. Testes and epididymides distended. Digital exam not repeated. EXTREMITIES: No edema. NEUROLOGIC: Grossly intact. DIAGNOSTIC STUDIES LABORATORY: Urinalysis is consistent with infection. Urine culture pending. Creatinine 0.9. WBC 5.4. IMAGING: CT scan as described. It shows a moderately large prostate. Reaves catheter in bladder which was not initially well draining. IMPRESSION 1. Multifactorial sustained postoperative urinary retention associated with atonic bladder and BPH. Now that he has been on Finasteride for closer to three months, may have accrued some effect and he may be close to passing a voiding trial when optimized. 2. Urinary tract infection, catheter related, but no evidence of colovesical fistula. 3. Any gross hematuria has resolved and consistent with catheter trauma and infection. PLAN We will follow up on urine studies and, when assured to be on appropriate antibiotic therapy and medically optimized, we will plan a repeat voiding trial in hospital. He is to continue Finasteride and tamsulosin in the meantime. Note that his current antibiotic therapy with Merrem is likely to cover most possibilities. Thank you for the consultation. Dictated by... Jenaro Jackson M.D. BENY/chey TD: 08/25/2016 09:06 Unit #: [id number] #: [id number] Patient: CONNIE PATIÑO JOB #: [id number] CONSULTATION REPORT Page 1 of 1 X Jenaro Jackson MD X CONSULTATION REPORT
--- NOTE | ~2016-08-24 | A ---
[facility] Nutrition Therapy DATE: 08/25/16 Patient: CONNIE PATIÑO Physician: ROSANA Address: [address] Room/Bed: [address] [place] [address], Zip: [place] [address] Admit Date: 08/24/16 Date of : [birth year] Height: 6 2 Weight: 172 78.13 NUTRITIONAL ASSESSMENT: REASON: 1 point malnutrition risk score re: pressure ulcer Admitting dx: 80 y/o male admitted with abdominal pain PMH: Alzeheimer's disease, dementia, HTN, OA, GERD, anemia, UTI, diverticulitis Anthropometrics: Ht: 74", Wt: 78.1 kg (172 lbs; per [place]), accurate weight is 165 lbs per patient, BMI: 21.1 (normal; based on patient reported weight) Labs: Na 134, other labs WNL Meds: PPI, Loperamide, Zofran prn, PPI, Megace, Therapeutic formula I/O & Bowel function: Last BM 08/23, c/o stomach feeling "yuck" however denies N/V Skin Integrity: Stage II pressure ulcer coccyx, surgical scar R knee, no edema Estimated Nutrition Needs: Increased nutrient needs r/t Stage II pressure ulcer and weight loss Assessment: Chart reviewed, events noted. Patient lives alone however has 31/10 caregiver and son helps as needed. CT scan confirmed diverticulitis, patient recently discharged from the hospital on 08/09 s/p L knee replacement. Patient c/o neck, knee and back pain and that his low back pain has yet to be addressed. He also states he has been told for 3 days wound care was going to see him, however this has not happened yet. I am taking his comments with a grain of salt given his history of dementia, however he answers questions appropriately and is able to tell me his diet/weight history. States he has lost approx. 27 lbs in 1-2 years, UBW used to be 195 lbs, says his current weight is 165 lbs (appears stated weight). This is due to, he says, previous diagnosis of diverticulitis and decreased appetite. started him on Megace, which he takes at home, and says has helped a lot. RD briefly verbally educated on GI soft diet, which I would recommend given his diverticulitis, patient ok with this and was amenable to trying chocolate Ensure shakes- will order and write recommendations in chart. Says his low back pain is bad right now and it has not been addressed, that he fell 1 week ago. Concern this may interfere with PO intake, will monitor. RD encouraged adequate PO and fluid intake, patient agreed. See recs below. Dx: 1) Unintentional weight loss r/t decreased appetite AEB patient reports 27 lb weight loss in 1-2 years (14% body weight loss). 2) Increased nutrient needs r/t wound healing requirements AEB Stage II pressure ulcer [facility] Nutrition Therapy DATE: 08/25/16 Patient: CONNIE PATIÑO Physician: ROSANA Address: [address] [place] [address] DRIVE Room/Bed: [address] [place] [address], Zip: [place] [address] Admit Date: 08/24/16 Date of : [birth year] Height: 6 2 Weight: 172 78.13 coccyx. Intervention: GI soft diet, Ensure BID, wound care consult Monitoring, Evaluation and Goals: 1. PO intake > 50-75% of meals. 2. Supplement intake > 75% BID. 3. Maintain current weight status. 4. Promote wound healing. 5. Promote regular GI function. Monitor: Per protocol, criteria to determine if above goals met Recommendations: 1. Suggest changing diet to GI soft to better meet the patient's nutritional needs given his diverticulitis diagnosis. This was briefly verbally explained to the patient, who agreed to the diet. Please encourage oral intake and assist with ordering meals as needed. 2. Please order chocolate Ensure Enlive BID to help meet increased protein needs. 3. Please weigh q 3 days for monitoring purposes, history of 14% body weight loss in 1-2 years. 4. Please consult wound care if they have not already been consult regarding the patient's stage II pressure ulcer on his coccyx. Encourage adequate fluid intake. 5. Continue Megace and vitamins. Will follow hospital course Mild-moderate nutrition risk Respectfully, Veronica Ferrara, LUCY, LD [employer] [facility] Nutrition[employer] [facility] cc: client file
[~2016-08-24 09:11] MED LIST changes: +AMLODIPINE BESYL5 MG PO; +ASPIRIN81 M2 PO; +B-COMPLEX PLUS1 EACH PO; +CIPRO PO; +DOCUSATE SODIU100 MG PO; +DONEPEZIL HCL10 MG PO; +FINASTERIDE5 M1 PO; +FLAGYL PO; +GLUCOSAMINE500 M1 PO; +MEGACE ORA40 MG/ML S PO; +PATANOL5 ML OU
[2016-08-24 09:38] LABS: EOSINOPHIL# 0.1 X10e3 (0-0.7); EOSINOPHIL% 2.4 % (0.0-7.0); HEMATOCRIT 38.4 % (38.0-50.0); HEMOGLOBIN 12.8 gm/dL (13.0-16.0); LYMPHOCYTE# 1.5 X10e3 (1.0-3.5); MEAN CELL VOLUME 88.4 FL (83-96); MEAN CORPUSCULAR HEMOGLOBIN 29.5 PG (28-34); MEAN CORPUSCULAR HGB CONC 33.4 g/dL (30-36); MEAN PLATELET VOLUME 8.1 FL (6.5-11.5); MONOCYTE# 0.4 X10e3 (0-1.0); MONOCYTE% 8.5 % (3.0-12.0); NEUTROPHIL# 2.8 X10e3 (1.5-7.1); NEUTROPHIL% 58.1 % (40-75); PLATELET COUNT 153 X10e3 (140-420); RED BLOOD COUNT 4.34 X10e (3.90-5.60); WHITE BLOOD COUNT 4.9 X10e3 (4.0-10.5)
[2016-08-24 09:41] LABS: DIFF IND NO
[2016-08-24 10:03] LABS: URINE SOURCE CLEAN CATCH
[2016-08-24 10:04] LABS: ALBUMIN SERUM 3.7 g/dL (3.5-5.0); BILIRUBIN, DIRECT 0.1 mg/dL (0.0-0.2); BILIRUBIN,INDIRECT 0.5 mg/dL (0.0-0.9); BILIRUBIN,TOTAL 0.6 mg/dL (0.2-2.0); BUN/CREATININE RATIO 16.66; CALCIUM SERUM 8.7 mg/dL (8.4-10.2); CREATININE SERUM 0.9 mg/dL (0.6-1.4); GLOM FILT RATE Estimated 80.4 mL/min (>60); POTASSIUM 3.5 mmol/L (3.5-5.1); PROTEIN TOTAL SERUM 6.6 g/dL (6.0-8.3)
[2016-08-24 10:11] LABS: URINE APPEARANCE CLOUDY; URINE BILIRUBIN NEG (NEG); URINE BLOOD 3+ (NEG); URINE COLOR ORANGE; URINE GLUCOSE NEG (NEG); URINE KETONE NEG (NEG); URINE LEUKOCYTE ESTERASE 3+ (NEG); URINE NITRATE NEG (NEG); URINE PH 6.5 (5-8); URINE PROTEIN 1+ (NEG); URINE SPECIFIC GRAVITY 1.008 (1.003-1.035); URINE UROBILINOGEN 0.2 MG/DL (NEG)
[2016-08-24 10:13] LABS: CULTURE INDICATED? YES; URBCS1 AUWI INNUM /[HPF] (0-2); URINE BACTERIA AUWI 1+ (NEGATIVE); URINE SQUAMOUS EPITHELIAL CELL NONE SEEN /[HPF]; UWBCS1 AUWI INNUM (0-5)
[2016-08-24] MEDS ORDERED: (NONE)1 CA1 PO (14:11)
[2016-08-24] MEDS ORDERED: ACETAMINOPHEN PO (14:11)
[2016-08-24] MEDS ORDERED: HYDROCODON-ACE1 EAC7 PO (14:12)
[2016-08-24] MEDS ORDERED: CLARITIN10 M3 PO (14:13)
[2016-08-24] MEDS ORDERED: MEDI-MECLIZINE25 M1 PO (14:13)
[2016-08-24] MEDS ORDERED: LOPERAMIDE HCL2 M1 PO (14:13)
[2016-08-24] MEDS ORDERED: ONDANSETRON HCL4 MG PO (14:14)
[2016-08-24] MEDS ORDERED: MULTIVITAMINS1 EAC3 PO (14:14)
[2016-08-24] MEDS ORDERED: MEGACE PO (14:14)
[2016-08-24] MEDS ORDERED: FLOMAX0.4 M1 PO (14:15)
[2016-08-25 03:34] LABS: HEMATOCRIT 37.1 % (38.0-50.0); HEMOGLOBIN 12.6 gm/dL (13.0-16.0); MEAN CELL VOLUME 87.5 FL (83-96); MEAN CORPUSCULAR HEMOGLOBIN 29.6 PG (28-34); MEAN CORPUSCULAR HGB CONC 33.8 g/dL (30-36); MEAN PLATELET VOLUME 8.1 FL (6.5-11.5); RED BLOOD COUNT 4.24 X10e (3.90-5.60); RED CELL DISTRIBUTION WIDTH 14.3 % (11.0-15.5); WHITE BLOOD COUNT 5.4 X10e3 (4.0-10.5)
[2016-08-25 04:02] LABS: BUN/CREATININE RATIO 14.44; CALCIUM SERUM 8.7 mg/dL (8.4-10.2); CREATININE SERUM 0.9 mg/dL (0.6-1.4); GLOM FILT RATE Estimated 80.4 mL/min (>60); POTASSIUM 3.6 mmol/L (3.5-5.1)
[2016-08-26 03:17] LABS: HEMATOCRIT 37.7 % (38.0-50.0); HEMOGLOBIN 12.5 gm/dL (13.0-16.0); MEAN CELL VOLUME 88.4 FL (83-96); MEAN CORPUSCULAR HEMOGLOBIN 29.3 PG (28-34); MEAN CORPUSCULAR HGB CONC 33.2 g/dL (30-36); MEAN PLATELET VOLUME 8.1 FL (6.5-11.5); RED BLOOD COUNT 4.26 X10e (3.90-5.60); WHITE BLOOD COUNT 4.8 X10e3 (4.0-10.5)
[2016-08-26 03:36] LABS: BUN/CREATININE RATIO 23.75; CALCIUM SERUM 8.6 mg/dL (8.4-10.2); CREATININE SERUM 0.8 mg/dL (0.6-1.4); GLOM FILT RATE Estimated 84.4 mL/min (>60); POTASSIUM 4.2 mmol/L (3.5-5.1)
[2016-08-27 03:39] LABS: HEMATOCRIT 37.2 % (38.0-50.0); HEMOGLOBIN 12.5 gm/dL (13.0-16.0); MEAN CELL VOLUME 87.5 FL (83-96); MEAN CORPUSCULAR HEMOGLOBIN 29.4 PG (28-34); MEAN CORPUSCULAR HGB CONC 33.6 g/dL (30-36); MEAN PLATELET VOLUME 7.8 FL (6.5-11.5); RED BLOOD COUNT 4.25 X10e (3.90-5.60); WHITE BLOOD COUNT 4.9 X10e3 (4.0-10.5)
[2016-08-27] MEDS ORDERED: MACROBID100 M1 PO (11:57)
[2016-08-27] MEDS ORDERED: FLAGYL PO (11:58)
== END 2016-08-27 13:16 | disposition home health service (06) | DRG 699 ==
LOC: CED 09:11 → CEDOF 14:02 → C4C 14:02 → CED 14:45 → CEDOF 14:45 → C4C 16:45
PROVIDERS: Emergency Medicine; Internal Medicine; Surgery
DX: T83.511A Infection and inflammatory reaction due to indwelling urethral catheter, initial encounter (principal); K57.92 Diverticulitis of intestine, part unspecified, without perforation or abscess without bleeding; F03.90 Unspecified dementia, unspecified severity, without behavioral disturbance, psychotic disturbance, mood disturbance, and anxiety; N31.2 Flaccid neuropathic bladder, not elsewhere classified; D64.9 Anemia, unspecified; R31.9 Hematuria, unspecified; T83.83XA Hemorrhage due to genitourinary prosthetic devices, implants and grafts, initial encounter; N39.0 Urinary tract infection, site not specified; Z96.651 Presence of right artificial knee joint; I10 Essential (primary) hypertension; K21.9 Gastro-esophageal reflux disease without esophagitis; Z79.82 Long term (current) use of aspirin; N40.1 Benign prostatic hyperplasia with lower urinary tract symptoms; R33.8 Other retention of urine; Y73.8 Miscellaneous gastroenterology and urology devices associated with adverse incidents, not elsewhere classified; M17.10 Unilateral primary osteoarthritis, unspecified knee; B95.2 Enterococcus as the cause of diseases classified elsewhere
CPT/HCPCS: 73560; 74177; 80048; 80076; 81003; 82150; 83690; 85025; 85027; 87086; 87088; 87186; 94760; 96361; 96374; 97110; 97116; 97162; 97165; 97530; 97535; 99285; G8978-GP; G8979-GP; G8987-GO; G8988-GO; J1650; J1956; J2185; J2270; Q9967

== ENCOUNTER 2016-08-29 14:07 | Observation (INO) | payer MEDICARE, BC ==
--- NOTE | ~2016-08-29 | DS ---
Unit #: [id number] #: [id number] Patient: CONNIE ISBELL [id number] [address] [place], [place] [address] [id number] MR#: [id number] NAME: CONNIE ISBELL. ROOM: 242 Age: 80 Sex: M Admission Date: 08/29/2016 : 1935 Discharge Date: 08/30/2016 Attending Physician: Debra Siegel M.D. Primary Care Physician: Jenaro Ortega D.O. DISCHARGE SUMMARY PRINCIPAL DIAGNOSES 1. Lower abdominal pain secondary to indwelling Reaves catheter +/- bladder spasm +/- musculoskeletal. 2. 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 3. Recent Enterococcus urinary tract infection, now resolved. 4. Recent diverticulitis without evidence of recurrence. 5. Benign prostatic hypertrophy. 6. Hypertension. 7. Stage 2 coccyx pressure ulcer, present upon admission. 8. Gastroesophageal reflux disease. 9. [id number]-[id number] dementia. 10. Osteoarthritis. 11. Normocytic anemia. CONSULTANTS Dr. Mayo, urology. PROCEDURES None. CLINICAL HISTORY AND HOSPITAL COURSE Mr. Isbell is an 80-year-old male just discharged from this facility on August 27 who presented back to the emergency department with complaints of abdominal pain. Please refer to H and P for further details. Patient's Reaves catheter was removed in the emergency department, and patient did not have any urine output. Reaves catheter was replaced, and he had 3 liters of urine. There was no evidence of infection on urinalysis. There was no leukocytosis. Patient was placed in observation for evaluation. This morning patient states his belly pain is better and it happens, actually, sporadically. It is present mostly over the bladder into the groin and suprapubic region. It is worse with movement. There is no fever, no leukocytosis, no evidence of renal dysfunction. I discussed with both patient and his son that this is likely either intermittent bladder spasm versus pain from the indwelling Reaves catheter versus muscular in origin. However, there does not appear to be any infectious etiology. There is no evidence of mass. There is no evidence of inguinal hernia. At this time, patient will be discharged home to continue with home health and [facility]. I did discuss both with the patient and his son that the fact the patient has been admitted 3 times within the last month is concerning for not functioning well at home. Patient states, "I will commit suicide" if he Unit #: [id number] #: [id number] Patient: CONNIE ISBELL goes to a [facility]. Plan is to continue with current care. DISCHARGE CONDITION Stable. DISCHARGE STATUS Discharge to home. DISCHARGE MEDICATIONS 1. Flomax 0.4 mg at bedtime. 2. Tylenol 650 mg p.o. daily p.r.n. pain. 3. Loperamide 2 mg p.o. q.i.d. p.r.n. diarrhea. 4. Meclizine 12.5 mg p.o. t.i.d. 5. Zofran 4 mg p.o. q.8 hours p.r.n. nausea and vomiting. 6. Claritin 10 mg daily. 7. Megace 40 mg b.i.d. 8. Glucosamine 500 mg p.o. t.i.d. 9. Norvasc 5 mg daily. 10. Donepezil 5 mg at bedtime. 11. Flagyl 500 mg p.o. t.i.d. until complete. 12. Patanol 1 drop to both eyes b.i.d. 13. Finasteride 5 mg daily. 14. Daily multivitamin. 15. Aspirin 81 mg daily. 16. [place] 5/325 mg 1 tablet p.o. q.8 hours p.r.n. pain. 17. Omeprazole 40 mg b.i.d. 18. Macrobid 100 mg p.o. b.i.d. until complete. 19. Vitamin D 50,000 units p.o. weekly. DISCHARGE INSTRUCTIONS Patient instructed to follow a regular diet. He can increase his activity as tolerated and will be discharged home with a catheter. FOLLOW-UP Patient will follow up with his primary urologist, Dr. Celaya, tomorrow as previously scheduled. However, I will note I did discuss with patient's son in particular that this catheter will likely be chronic given poor output yesterday in the ER. NOTE: Time spent on discharge 36 minutes. Dictated by... Debra Siegel M.D. YUE/ketan TD: 08/31/2016 08:50 JOB #: [id number] Unit #: [id number] #: [id number] Patient: CONNIE ISBELL DISCHARGE SUMMARY Page 1 of 1 X Debra Siegel MD X DISCHARGE SUMMARY
--- NOTE | ~2016-08-29 | CO ---
Unit #: [id number] #: [id number] Patient: CONNIE PATIÑO [id number] [address] [place], [place] [address] [id number] I MR#: [id number] NAME: CONNIE PATIÑO. ROOM: 242 Age: 80 Sex: M Admission Date: 08/29/2016 : 1935 Attending Physician: Debra Siegel M.D. Primary Care Physician: Jenaro Ortega D.O. Consultation Date: 08/30/2016 CONSULTATION REPORT CHIEF COMPLAINT Abdominal pain. HISTORY OF PRESENT ILLNESS Mr. Patiño is an 80-year-old gentleman known to our service. He sees Dr. Celaya. He has an indwelling catheter, history of atonic bladder. Patient had complaints of abdominal pain. Catheter was placed yesterday after he was unable to urinate. The catheter had been removed for a trial. The pain was pretty much resolved after the catheter went back in. I am not aware of the amount of residual. Patient has had urodynamic studies and has not seen my partner, Dr. Celaya, since his recent hospital admission and discharge. Currently he is sitting in the bed resting comfortably. As I mentioned, the pain was resolved once the catheter was placed. He described it as moderate to severe, dull, relatively constant. PAST MEDICAL HISTORY Urinary retention, atonic bladder, diverticulitis, hypertension, GERD, stage 2 coccyx ulcer, osteoarthritis, dementia, anemia, right eye surgery, right knee surgery. ALLERGIES Pentazocine, Cipro, cefuroxime. HOME MEDICATIONS Aspirin, donepezil, Proscar, glucosamine, Prilosec, amlodipine, pentanol, Tylenol, ergocalciferol. He takes Lortab 5, Reglan, Claritin, meclizine, Megace, multivitamin, Zofran, Flomax, Macrobid, Flagyl. REVIEW OF SYSTEMS Negative for all 10 except for abdominal pain. PHYSICAL EXAMINATION VITAL SIGNS: Vital signs stable. He is afebrile. GENERAL DESCRIPTION: Alert and oriented. No acute distress. HEENT: Head is atraumatic. NECK: Supple. LUNGS: Benign. HEART: Benign. ABDOMEN: Soft. He is mildly tender to palpation in the suprapubic area but no rebound and no guarding. EXTREMITIES: No clubbing, cyanosis or edema. NEUROLOGIC: He follows commands. He is awake. He is alert. DIAGNOSTIC STUDIES Unit #: [id number] #: [id number] Patient: CONNIE PATIÑO LABS: Urine culture on August 24 grew out greater than 100,000 Enterococcus. I think he is likely colonized because of his indwelling catheter. White count is normal at 4.6. Creatinine is normal at 0.8. ASSESSMENT Urinary retention. Bladder without any tonicity. Needs to leave the catheter in because he is unable to urinate. Needs to be sent home with the catheter. When he is discharged, he needs to follow up with my partner, Dr. Celaya, as previously planned. Odds are he may be in for a chronic indwelling catheter. Thank you for the chance to participate in his care. Dictated by... Gilmar Mayo M.D. GLYNN/ketan TD: 08/30/2016 16:08 JOB #: [id number] CONSULTATION REPORT Page 1 of 1 X Gilmar Mayo MD X CONSULTATION REPORT
--- NOTE | ~2016-08-29 | HP ---
Unit #: [id number] #: [id number] Patient: CONNIE PATIÑO [id number] [facility]. [place], [place] [address] [id number] I MR#: [id number] NAME: CONNIE PATIÑO. ROOM: 99127 Age: 80 Sex: M Admission Date: 08/29/2016 : 1935 Attending Physician: Melany Curran M.D. Primary Care Physician: Jenaro Ortega D.O. HISTORY AND PHYSICAL CHIEF COMPLAINT Low abdominal pain. HISTORY OF PRESENT ILLNESS The patient is an 80-year-old male with past medical history of enterococcus urinary tract infection, atonic bladder, BPH, recurrent sigmoid diverticulitis, hypertension, GERD, osteoarthritis, dementia, anemia who presented to the emergency department for evaluation of the above. Of note, the patient was hospitalized at [facility] 08/24 through 08/27/2016 for enterococcus catheter-associated urinary tract infection and recurrent sigmoid diverticulitis. Per the discharge summary, the patient was initially placed on Merrem but the patient was going to be discharged home on Macrobid with followup with Dr. Celaya as an outpatient. The patient states that since discharge he has had persistent low abdominal pain, he states that the pain is "severe," he describes it as "sharp," it is constant in nature. There are no exacerbating or alleviating factors. He states that the pain is similar to when he has had a urinary tract infection in the past. He does have an indwelling Reaves catheter. The catheter was removed during the course of his evaluation in the emergency department. He has been unable to void. There has been no change in his pain since removal of the catheter. The catheter was draining urine appropriately per my discussion with the ER staff. Patient was given a total of 8 mg of morphine in the emergency department. Urinalysis shows 2+ blood and 10-25 rbc's. He is being admitted to [facility] for evaluation and further treatment. PAST MEDICAL HISTORY 1. Admission to [facility] 08/24 through 08/27/2016 for enterococcus catheter-associated urinary tract infection. The urine culture from 08/24/2016 grew greater than 100,000 enterococcus that was sensitive to ampicillin and nitrofurantoin. He was also seen by Dr. Simon regarding recurrent diverticulitis. The patient may have a repeat colonoscopy in two weeks following his diverticulitis. He was discharged home on Flagyl. 2. Atonic bladder. Per consultation note from Dr. Jackson, dated 08/08/2016, the patient had a urodynamic study showing atonic bladder. He sees Dr. Celaya as an outpatient. 3. BPH with history of urinary retention. Unit #: [id number] #: [id number] Patient: CONNIE PATIÑO 4. History of recurrent sigmoid diverticulitis. 5. Hypertension. 6. GERD. 7. Stage 2 coccyx ulcer. 8. Osteoarthritis. 9. Dementia. 10. Anemia. PAST SURGICAL HISTORY 1. Right eye surgery. 2. Right knee surgery. ALLERGIES 1. Pentazocine. 2. Ciprofloxacin. 3. Cefuroxime. HOME MEDICATIONS 1. Aspirin 81 mg daily. 2. Donepezil 5 mg h.s. 3. Finasteride 5 mg daily. 4. Glucosamine 500 mg t.i.d. 5. Omeprazole 40 mg b.i.d. 6. Amlodipine 5 mg daily. 7. Patanol eye drops b.i.d. 8. Tylenol 1300 mg daily p.r.n. 9. Ergocalciferol 50,000 units weekly. 10. Hydrocodone/acetaminophen 5/325 q.8 h. p.r.n. 11. Loperamide 2 mg q.i.d. p.r.n. 12. Claritin 10 mg daily. 13. Meclizine 12.5 mg t.i.d. 14. Megestrol 40 mg b.i.d. 15. Multivitamin daily. 16. Ondansetron 4 mg q.8 h. p.r.n. 17. Flomax 0.4 mg daily. 18. Macrobid 100 mg b.i.d. 19. Flagyl 500 mg q.8 h. REVIEW OF SYSTEMS A complete review of systems is negative except as indicated in the HPI. PHYSICAL EXAMINATION VITAL SIGNS: Temperature 97.1, pulse 65, respirations 16, blood pressure 123/70, oxygen saturation 98% on room air. GENERAL: The patient is a male who is awake and alert in no acute distress. HEENT: Head is atraumatic. Mucous membranes are moist. NECK: Supple. Trachea is midline. LUNGS: Clear to auscultation bilaterally with no increased work of breathing. HEART: Regular rate and rhythm. ABDOMEN: Soft. He is tender to palpation in the suprapubic area. Bowel sounds present in all four quadrants. EXTREMITIES: Nontender with no pedal edema. NEUROLOGIC: Patient is awake and alert. He follows commands. PSYCHIATRIC: Mood and affect are normal. Patient is cooperative. SKIN OF EXAMINED AREAS: Warm and dry. Unit #: [id number] #: [id number] Patient: CONNIE PATIÑO DIAGNOSTIC STUDIES LABORATORY: Urine culture from 08/24/2016 grew greater than 100,000 enterococcus species that was sensitive to ampicillin and nitrofurantoin. CBC from today is essentially normal. Urinalysis from today shows 2+ blood with 10-25 rbc's. Comprehensive metabolic panel notable for sodium of 132, CO2 is 21, amylase and lipase are normal. IMAGING: CT of the abdomen and pelvis, from 08/24/2016, shows inflammatory change around short segment of lower left colon with numerous diverticula concerning for possible diverticulitis. ASSESSMENT The patient is an 80-year-old male with: 1. Abdominal pain, suprapubic. 2. History of enterococcus urinary tract infection sensitive to nitrofurantoin. The patient is currently on nitrofurantoin and has been taking the medication as prescribed. 3. History of atonic bladder followed by Dr. Celaya. The patient had a chronic indwelling Reaves catheter that was removed today. He has not been able to void. The catheter was removed within the hour. 4. History of benign prostatic hypertrophy with history of urinary retention. 5. History of recurrent sigmoid diverticulitis. The patient is currently on Flagyl with plans for outpatient colonoscopy in 2 weeks. 6. Hypertension. 7. Gastroesophageal reflux disease. 8. Stage 2 coccyx ulcer noted on discharge summary. Per my discussion with ER nurse, the patient's coccyx is currently erythematous with no area of skin breakdown. 9. Osteoarthritis. 10. Dementia. 11. Anemia. PLAN 1. Admit for observation to med-surg. 2. Healthy-heart diet. 3. Bladder scan. Check post-void residual. 4. Strict I's and O's. 5. Consult first Urology regarding abdominal pain and atonic bladder. 6. Wound care consult regarding sacral wound. 7. P.r.n. morphine. 8. P.r.n. Zofran. 9. Repeat labs in the morning. 10. SCDs for DVT prophylaxis. 11. Continue Macrobid and Flagyl for urinary tract infection and diverticulitis respectively. Dictated by Vik Rodriguez/checo TD: 08/29/2016 20:15 JOB #: [id number] Unit #: [id number] #: [id number] Patient: CONNIE PATIÑO HISTORY AND PHYSICAL Page 1 of 1 X Melany Curran MD HISTORY AND PHYSICAL
[~2016-08-29 14:07] MED LIST changes: +(NONE)1 CA1 PO; +ACETAMINOPHEN PO; +CLARITIN10 M3 PO; +FLOMAX0.4 M1 PO; +HYDROCODON-ACE1 EAC7 PO; +LOPERAMIDE HCL2 M1 PO; +MACROBID100 M1 PO; +MEDI-MECLIZINE25 M1 PO; +MEGACE PO; +MULTIVITAMINS1 EAC3 PO; +ONDANSETRON HCL4 MG PO
[2016-08-29 15:47] LABS: URINE SOURCE CLEAN CATCH
[2016-08-29 15:50] LABS: BASOPHIL% 0.6 % (0-2.5); EOSINOPHIL# 0.1 X10e3 (0-0.7); EOSINOPHIL% 1.3 % (0.0-7.0); HEMATOCRIT 40.4 % (38.0-50.0); HEMOGLOBIN 13.7 gm/dL (13.0-16.0); LYMPHOCYTE# 1.1 X10e3 (1.0-3.5); MEAN CELL VOLUME 87.3 FL (83-96); MEAN CORPUSCULAR HEMOGLOBIN 29.6 PG (28-34); MEAN CORPUSCULAR HGB CONC 33.9 g/dL (30-36); MEAN PLATELET VOLUME 7.8 FL (6.5-11.5); MONOCYTE# 0.6 X10e3 (0-1.0); MONOCYTE% 8.2 % (3.0-12.0); NEUTROPHIL# 5.7 X10e3 (1.5-7.1); NEUTROPHIL% 74.9 % (40-75); PLATELET COUNT 169 X10e3 (140-420); RED BLOOD COUNT 4.62 X10e (3.90-5.60); RED CELL DISTRIBUTION WIDTH 13.7 % (11.0-15.5); WHITE BLOOD COUNT 7.6 X10e3 (4.0-10.5)
[2016-08-29 15:51] LABS: DIFF IND NO
[2016-08-29 15:52] LABS: URINE APPEARANCE CLEAR; URINE BILIRUBIN NEG (NEG); URINE BLOOD 2+ (NEG); URINE COLOR YELLOW; URINE GLUCOSE NEG (NEG); URINE KETONE NEG (NEG); URINE LEUKOCYTE ESTERASE NEG (NEG); URINE NITRATE NEG (NEG); URINE PH 6.5 (5-8); URINE PROTEIN NEG (NEG); URINE SPECIFIC GRAVITY 1.011 (1.003-1.035); URINE UROBILINOGEN 0.2 MG/DL (NEG)
[2016-08-29 15:55] LABS: URINE BACTERIA AUWI NEG (NEGATIVE); URINE SQUAMOUS EPITHELIAL CELL NONE SEEN /[HPF]; UWBCS1 AUWI 0-2 (0-5)
[2016-08-29 15:57] LABS: CULTURE INDICATED? NO
[2016-08-29 16:19] LABS: ALBUMIN SERUM 4.1 g/dL (3.5-5.0); BILIRUBIN, DIRECT 0.2 mg/dL (0.0-0.2); BILIRUBIN,INDIRECT 0.6 mg/dL (0.0-0.9); BILIRUBIN,TOTAL 0.8 mg/dL (0.2-2.0); BUN/CREATININE RATIO 17.5; CALCIUM SERUM 8.8 mg/dL (8.4-10.2); CREATININE SERUM 0.8 mg/dL (0.6-1.4); GLOM FILT RATE Estimated 84.4 mL/min (>60); POTASSIUM 3.8 mmol/L (3.5-5.1); PROTEIN TOTAL SERUM 7.4 g/dL (6.0-8.3)
[2016-08-30 06:59] LABS: BASOPHIL% 0.9 % (0-2.5); EOSINOPHIL# 0.2 X10e3 (0-0.7); EOSINOPHIL% 3.5 % (0.0-7.0); HEMATOCRIT 37.9 % (38.0-50.0); HEMOGLOBIN 12.7 gm/dL (13.0-16.0); LYMPHOCYTE# 1.3 X10e3 (1.0-3.5); LYMPHOCYTE% 28.1 % (17.0-45.0); MEAN CELL VOLUME 86.9 FL (83-96); MEAN CORPUSCULAR HGB CONC 33.4 g/dL (30-36); MEAN PLATELET VOLUME 7.7 FL (6.5-11.5); MONOCYTE# 0.5 X10e3 (0-1.0); MONOCYTE% 10.9 % (3.0-12.0); NEUTROPHIL# 2.6 X10e3 (1.5-7.1); NEUTROPHIL% 56.6 % (40-75); PLATELET COUNT 154 X10e3 (140-420); RED BLOOD COUNT 4.37 X10e (3.90-5.60); RED CELL DISTRIBUTION WIDTH 13.9 % (11.0-15.5); WHITE BLOOD COUNT 4.6 X10e3 (4.0-10.5)
[2016-08-30 07:00] LABS: DIFF IND NO
[2016-08-30 07:33] LABS: CALCIUM SERUM 8.8 mg/dL (8.4-10.2); CREATININE SERUM 0.8 mg/dL (0.6-1.4); GLOM FILT RATE Estimated 84.4 mL/min (>60); POTASSIUM 3.7 mmol/L (3.5-5.1)
== END 2016-08-30 16:52 | disposition home or self-care (01) ==
LOC: CED 14:07 → C2A 19:30 → CEDOF 19:30 → CED 20:08 → CEDOF 20:08 → C2A 21:35
PROVIDERS: Emergency Medicine; Family Medicine
DX: T83.84XA Pain due to genitourinary prosthetic devices, implants and grafts, initial encounter (principal); Y73.2 Prosthetic and other implants, materials and accessory gastroenterology and urology devices associated with adverse incidents; R10.30 Lower abdominal pain, unspecified; N31.2 Flaccid neuropathic bladder, not elsewhere classified; R33.9 Retention of urine, unspecified; Z87.440 Personal history of urinary (tract) infections; N40.0 Benign prostatic hyperplasia without lower urinary tract symptoms; I10 Essential (primary) hypertension; L89.152 Pressure ulcer of sacral region, stage 2; Z87.19 Personal history of other diseases of the digestive system; K21.9 Gastro-esophageal reflux disease without esophagitis; F03.90 Unspecified dementia, unspecified severity, without behavioral disturbance, psychotic disturbance, mood disturbance, and anxiety; M19.90 Unspecified osteoarthritis, unspecified site; D64.9 Anemia, unspecified; Z88.1 Allergy status to other antibiotic agents; Z88.8 Allergy status to other drugs, medicaments and biological substances; Z79.82 Long term (current) use of aspirin
CPT/HCPCS: 36415; 80048; 80076; 81003; 82150; 83690; 85025; 96374; 96375; 96376; 99285; G0378; J2270; J2405

== ENCOUNTER 2016-11-01 07:38 | Emergency (ER) | payer MEDICARE, BC ==
[2016-11-01] MEDS ORDERED: BACTRIM 400-801 EACH (07:51)
[2016-11-01] MEDS ORDERED: MOBIC (07:51)
[2016-11-01] MEDS ORDERED: IRON325 MG (07:51)
[2016-11-01] MEDS ORDERED: FLOMAX0.4 M1 (07:52)
[2016-11-01] MEDS ORDERED: ATENOLOL (07:52)
[2016-11-01 08:15] LABS: URINE SOURCE CATH
[2016-11-01 08:17] LABS: URINE APPEARANCE SL CLOUDY; URINE BILIRUBIN NEG (NEG); URINE BLOOD 3+ (NEG); URINE COLOR YELLOW; URINE GLUCOSE NEG (NORM); URINE KETONE NEG (NEG); URINE LEUKOCYTE ESTERASE 2+ (NEG); URINE NITRATE POS (NEG); URINE PH 5.5 (5-8); URINE PROTEIN 1+ (NEG); URINE SPECIFIC GRAVITY 1.025 (1.003-1.035)
[2016-11-01 08:26] LABS: MICRO INDICATED? YES
[2016-11-01 08:27] LABS: URINE WBC 25-50 /[HPF] (0-5)
[2016-11-01 08:28] LABS: CULTURE INDICATED? YES; URINE BACTERIA 1+ (NEG); URINE SQUAMOUS EPITHELIAL CELL FEW /[HPF]
== END 2016-11-01 10:48 | disposition home or self-care (01) ==
LOC: SED 07:38 → CED 07:43 → SED 07:43
PROVIDERS: Emergency Medicine
DX: T83.098A Other mechanical complication of other urinary catheter, initial encounter (principal); N30.00 Acute cystitis without hematuria; Z88.0 Allergy status to penicillin; Z88.8 Allergy status to other drugs, medicaments and biological substances; Z88.1 Allergy status to other antibiotic agents
CPT/HCPCS: 51702; 81003; 87086; 99284